=== PATIENT | male | born 1975 | race Caucasian/White ===

== ENCOUNTER 2023-05-26 06:07 | Day surgery (SDC) | payer BC, SELFPAY ==
[2023-05-26] VITALS (12 sets, daily range): BP systolic 122–147; BP diastolic 64–89; PULSE 61–89; RESP 12–16; TEMP 36.4–36.9; O2SAT 96–100; BMI 31.6
[2023-05-26] MEDS: SODIUM CHLORIDE 0.9 % (FLUSH) 10 ML SYRINGE IVF (06:45)
[2023-05-26] MEDS: LACTATED RINGERS 1000 ML 1,000 ML 100 ML IV (06:45)
[2023-05-26] MEDS: CEFAZOLIN 2 GM INJ IVP (07:53)
[2023-05-26] MEDS: BUPIVACAINE 0.25% 30 ML INJECTION (09:20)
--- NOTE | 2023-05-26 09:40 | W.ANESCHARGE ---
Anesthesia Charges Start Date/Time Anesthesia Start Date: 05/26/23 Anesthesia Start Time: 07:36 Stop Date/Time Anesthesia Stop Date: 05/26/23 Anesthesia Stop Time: 09:36
[2023-05-26] MEDS: fentaNYL 100 MCG/2 ML inj 50 MCG IVP (09:46)
--- NOTE | 2023-05-26 09:57 | PM.GSPRC ---
Operative Note Pre-op diagnosis: Right inguinal hernia Post-op diagnosis: 1. Indirect right inguinal hernia 2. Small direct left inguinal hernia Type of Procedure: 1. Diagnostic laparoscopy 2. Bilateral laparoscopic inguinal hernia repair with placement of mesh Indications: Patient is a 47-year-old male who presented to clinic with a symptomatic right inguinal hernia. He was also concerned about symptoms starting on the left side. Different treatment options were reviewed with the patient. Please see consultation note for full details. Risks and benefits of operative intervention were discussed at length with the patient. Risks included but was not limited to: Bleeding, infection, risk of damage to surrounding structures, possible need for additional procedures, possible need to convert to an open operation and postoperative complications such as pneumonia, pulmonary emboli or NE. All questions and concerns were addressed with the patient agreeing to proceed. Due to the patient's concern for a small hernia developing on the left side I discussed with him the risks versus benefits of performing a diagnostic laparoscopy. I reviewed with the patient that although my physical exam does not feel a hernia, the most accurate way of determining if there is a defect contributing to his symptoms of burning sensation and tugging in the left groin, would be with diagnostic laparoscopy. The procedure was described at length. All questions and concerns were addressed with patient agreeing to proceed. He does understand that if a hernia is seen it will be repaired TEP and with mesh. Procedure Description: After discussing the risks and benefits of the procedure, the patient signed informed consent.? The operative site was marked and the patient was brought to the operating room and placed on the operating table in supine position.? Care was taken to pad the patient's pressure points.?? The patient was then intubated by anesthesia.?? The operative site was then prepped and draped in the usual sterile fashion.? A time-out was then performed. A small incision was made in the left upper quadrant. The abdomen was entered via a 5 mm Visiport. The abdomen was insufflated and briefly surveyed with no evidence of underlying injury. The pelvis was examined with evidence of a large hernia on the right side and a small hernia on the left. The decision was made to proceed with a bilateral laparoscopic TEP repair. The camera was then removed and intra-abdominal air evacuated. The 5 mm port was removed. A curvilinear incision was made below the umbilicus. Dissection was carried down to subcutaneous tissue until the anterior rectus fascia was encountered. This was incised off the midline. The rectus muscles were then retracted exposing the posterior fascia. A space maker port with a dissecting balloon was then introduced. The preperitoneal space was inflated under direct vision. The balloon was then removed and the preperitoneal space insufflated. A 10 mm 30 degree scope was then advanced and the area was surveyed for bleeding. Dissection began on the right side. Mo's ligament and the pubic bone was exposed medially. Following this dissection was carried out laterally. A large indirect defect was noted. The sac was dissected free from the cord structures using a combination of sharp and blunt dissection. Once the sac was completely reduced, attention was then directed to the left side. Dissection was completed in similar fashion with evidence of a small direct inguinal hernia. Once dissection was completed a piece of large Bard 3D mesh was placed within the preperitoneal space. A Tacker was used to tack medially along Mo's ligament. A single lateral tack was placed to prevent migration of the mesh. The right large Bard 3D mesh was then placed within the preperitoneal space and similarly positioned. Two tacks were placed medially along Mo's ligament. There was no need for a lateral tack with the mesh easily falling into place. The hernia sac bilaterally was placed on the mesh and the preperitoneal space desufflated under direct vision. 20 mL of local anesthetic was used to infiltrate the preperitoneal space. The remainder of the anesthetic was used to anesthetize the umbilical port site and left upper quadrant 5 mm port site. All of the ports were removed. The fascia from the infraumbilical port was closed with 0 Vicryl. The skin incisions were closed with absorbable subcuticular suture. Sterile dressings were then applied. The scrotum was examined to ensure that both testicles were down. Instrument sponge and needle counts were correct at the end of the case. Findings: Large right-sided indirect hernia. Small sided direct hernia. Bilateral laparoscopic TEP repair with placement of mesh. Anesthesia: GETA and local Surgeon: Maria Guadalupe Morgan MD Estimated blood loss (mL): 5 Condition: stable Disposition: same day Date of procedure: 05/26/23
[2023-05-26] MEDS: HYDROCODONE-ACETAMIN 5-325 MG 1 TAB PO (10:20)
--- NOTE | 2023-05-26 11:09 | W.ANESCHARGE ---
Anesthesia Charges Start Date/Time Anesthesia Start Date: 05/26/23 Anesthesia Start Time: 07:36 Stop Date/Time Anesthesia Stop Date: 05/26/23 Anesthesia Stop Time: 09:36
== END 2023-05-26 11:20 | disposition home or self-care (01) ==
PROVIDERS: PCP Family Medicine; Visit Provider Surgery
PROC: (CPT 49650; principal; 2023-05-26 07:30)
DX: K40.20 Bilateral inguinal hernia, without obstruction or gangrene, not specified as recurrent (principal)
CPT/HCPCS: 49650; 00830; 00840; 00860; A9270; C1781; J0330; J0665; J0690; J1100; J2250; J2405; J2704; J3010; J7120

== ENCOUNTER 2023-07-01 08:28 | Outpatient (CLI) | payer BC, SELFPAY | END 2023-07-01 08:29 | disposition home or self-care (01) | PROVIDERS: PCP Family Medicine; Referring Provider Family Medicine; Visit Provider Family Medicine | DX: R53.83 Other fatigue (principal); R79.89 Other specified abnormal findings of blood chemistry; Z13.220 Encounter for screening for lipoid disorders; Z12.5 Encounter for screening for malignant neoplasm of prostate | CPT/HCPCS: 80053; 80061; 84153; 84270; 84402; 84403 ==

== ENCOUNTER 2023-11-08 08:34 | Outpatient (CLI) | payer BC, SELFPAY | END 2023-11-08 08:35 | disposition home or self-care (01) | LOC: LKVREF 08:35 | PROVIDERS: PCP Family Medicine; Visit Provider Family Medicine | DX: R42 Dizziness and giddiness (principal) | CPT/HCPCS: 86140 ==

== ENCOUNTER 2025-03-22 13:49 | Outpatient (CLI) | payer BC, SELFPAY | END 2025-03-22 13:50 | disposition home or self-care (01) | PROVIDERS: PCP Family Medicine; Visit Provider Family Medicine | DX: M25.50 Pain in unspecified joint (principal); R53.81 Other malaise; R53.83 Other fatigue; R79.89 Other specified abnormal findings of blood chemistry; Z12.5 Encounter for screening for malignant neoplasm of prostate; Z13.6 Encounter for screening for cardiovascular disorders | CPT/HCPCS: 80053; 80061; 84270; 84402; 84403; 84443; 86038; 86140; 86431; 86618; G0103 ==